=== PATIENT | female | born 1940 ===

== ENCOUNTER 2021-06-15 10:11 | Day surgery (SDC) | payer BC ==
[~2021-06-15 10:11] MED LIST: Metoclopramide 10 MG/2 ML SDV IV PRN; Sodium Chloride 0.9% 1,000 ML IV SCH
[2021-06-15] MEDS ORDERED: Atropine 0.4 MG/ML SDV ONE (12:30)
[2021-06-15] MEDS ORDERED: Propofol 1,000 MG/100 ML SDV ONE (12:30)
[2021-06-15] MEDS ORDERED: Glycopyrrolate 0.2 MG/ML 2 ML SDV ONE (12:30)
--- NOTE | 2021-06-15 13:14 | OR ---
DATE OF OPERATION: 06/15/2021 SURGEON: Jt Saravia MD PREOPERATIVE DIAGNOSIS: Hematochezia. POSTOPERATIVE DIAGNOSIS: Hematochezia. PROCEDURE: Colonoscopy with polypectomy. ANESTHESIA: MAC. ESTIMATED BLOOD LOSS: Minimal. COMPLICATIONS: None. INDICATION FOR THE PROCEDURE: The patient is a 81-year-old female who about a month ago had 3-4 days of bright red blood per rectum. Otherwise, denies any bleeding in the last month. Last colonoscopy was 7 or 8 years ago, it was normal per the patient. She has otherwise been doing well. She is here today for colonoscopy. DESCRIPTION OF PROCEDURE: Informed consent was obtained from the patient. The patient was taken to the operating room, placed on table in the left lateral decubitus position. Monitored anesthesia care was administered. Digital rectal exam performed, it was normal. Colonoscope was then advanced through the anus, directed towards the cecum. Cecum was reached and identified by appendiceal orifice and ileocecal valve. Colonoscope was then slowly withdrawn. She did have a moderate amount of small and large diverticula throughout the descending and sigmoid colon. Otherwise, a small sessile polyp in the mid rectum. This was removed with hot biopsy polypectomy. Colonoscope was then withdrawn. FINDINGS: Diverticulosis and rectal polyp. RECOMMENDATIONS: We will follow up on biopsies. Otherwise, we would recommend a high-fiber diet and plenty of water. If she does have further bleeding or significant bleeding, would recommend admission and monitoring of that. Otherwise, no further colonoscopies recommended. ANN/MATTHEW /[id number]
== END 2021-06-15 13:48 | disposition home or self-care (01) ==
LOC: LB.SDS 10:11
PROVIDERS: ATTEND Surgery
DX: D12.8 Benign neoplasm of rectum (principal); K57.31 Diverticulosis of large intestine without perforation or abscess with bleeding; K21.9 Gastro-esophageal reflux disease without esophagitis; Z79.899 Other long term (current) drug therapy; Z79.82 Long term (current) use of aspirin; Z87.891 Personal history of nicotine dependence
CPT/HCPCS: 45380; J0461; J2704; J3490; J7030